=== PATIENT | male | born 2000 | race Caucasian/White ===

== ENCOUNTER 2021-08-02 13:13 | Emergency (ER) | payer OTHER, BC ==
[~2021-08-02] VITALS: Ht 185.4 cm; Wt 133.8 kg
--- NOTE | ~2021-08-02 | EMS ---
[facility] [address] [place] [address] EMS Patient Care Report Name: JIL PIPER Room #: DEP MAKR Boyce#: [id number] Admission: 08/02/21 Attend Phys: Discharge: 08/02/21 Date of : 89 Report #: [id number] THIS REPORT FOR: //name// Report Transmitted: 08/04/2021 14:00 EMS Care Summary [place], [place]/[facility] Incident [id number] @ 08/02/2021 12:36 Incident Location [address] [place] [address] Patient JIL PIPER Male, 21 Years 2000 Patient Address [address] [place] [id number] Patient History None Reported, Patient Allergies Keflex, Patient Medications None Reported, Chief Complaint TOE INJURY Disposition Transported No Lights/[place] Dis[place] Reason Traumatic Injury Transported To [facility] Narrative UPON ARRIVAL TO SCENE, PT FOUND SEATED ON CHAIR IN [facility] ALERT AND ORIENTED. PT WAS ON [employer], TRYING TO DIFFUSE DOMESTIC DISTURBANCE WHEN A [facility] [address] [place] [address] EMS Patient Care Report Name: JIL PIPER Room #: DEP ER Jaciel.#: [id number] Admission: 08/02/21 Attend Phys: Discharge: 08/02/21 Date of : [birth year] Report #: [id number] TABLE GOT FLIPPED AND LANDED ON HIS R FOOT. PT REMOVED SHOE AND NOTICED PAIN WITH BRUISING AND SWELLING TO BIG TOE AND DECIDED HE NEEDS TO HAVE IT XRAY. PT WAS ASSISTED TO AMBULANCE AND VITALS MONITORED EN ROUTE. UPON ARRIVAL PT TAKEN TO ER AND CARE LEFT WITH STAFF NURSE. Initial Vitals @12:50P: 66,R: 16,BP: 167/99,Pain: 6/10,GCS: 15,SpO2: 98,Revised Trauma: 12, @12:55P: 70,R: 16,BP: 150/80,Pain: 6/10,GCS: 15,SpO2: 99,Revised Trauma: 12, Assessments @12:46MENTAL:Place Oriented,Person Oriented,Time Oriented,Event Oriented,SKIN:HEENT:Head/Face: No Abnormalities,Neck/Airway: No Abnormalities,LUNG SOUNDS:General: No Abnormalities,ABDOMEN:General: No Abnormalities,PELVIS//GI:EXTREMITIES:Right Leg: Other,Left Arm: No Abnormalities,Right Arm: No Abnormalities,Left Leg: No Abnormalities,PULSE:NEURO:No Abnormalities, Impression Injury of Foot Procedures @12:46 ALS Assessment Response: UnchangedSucceeded Timeline 12:33,Call Received 12:33,Dispatch Notified 12:36,Dispatched 12:37,En Route 12:44,On Scene 12:45,At Patient 12:46,ALS Assessment,Response: UnchangedSucceeded, 12:50,BP: 167/99 M,PULSE: 66,RR: 16 R,SPO2: 98 Ox,ETCO2: ,BG: ,PAIN: 6,GCS: 15, 12:53,Depart Scene 12:55,BP: 150/80 M,PULSE: 70,RR: 16 R,SPO2: 99 Ox,ETCO2: ,BG: ,PAIN: 6,GCS: 15, 13:10,At Destination 13:22,Call Closed Disclaimer [email or web address] Copyright 2021 [email or web address] This EMS Care Summary contains data elements from the applicable legal record (which may be displayed differently). It is designed to provide pertinent information for the following purposes: continuity of care, clinical quality, and state data reporting. The complete legal record is available to ED staff and administrators of the receiving hospital in [employer] Patient Tracker. All data is provided "as is."
[2021-08-02 14:41] VITALS: BP 130/80
== END 2021-08-02 14:41 | disposition home or self-care (01) ==
LOC: ER 13:13
DX: S92.424A Nondisplaced fracture of distal phalanx of right great toe, initial encounter for closed fracture (principal); Z88.1 Allergy status to other antibiotic agents; X58.XXXA Exposure to other specified factors, initial encounter; Y93.89 Activity, other specified; Y92.89 Other specified places as the place of occurrence of the external cause; Y99.8 Other external cause status